=== PATIENT | female | born 1980 | race Caucasian/White ===

== ENCOUNTER 2023-04-30 19:49 | Emergency (ER) | payer OTHER, SELFPAY ==
[2023-04-30 19:50] VITALS: BP 170/106
[2023-04-30 20:01] LABS: % Basophils 0.4 % (0-2); % Eosinophils 0.6 % (0-6); % Immature Granulocytes 0.2 % (0-0.5); % Monocytes 3.6 % (1.7-9.3); % Neutrophils 70.2 % (42.2-75.2); Absolute Eosinophils 0.1 10^3/uL (0-0.7); Absolute Lymphocytes 2.3 10^3/uL (1.2-3.4); Absolute Monocytes 0.3 10^3/uL (0.1-0.6); Absolute Neutrophils 6.3 10^3/uL (1.4-6.5); Hematocrit 40.7 % (37.0-47.0); Hemoglobin 14.1 g/dL (12.0-16.0); Mean Corp Hgb Conc. 34.6 g/dL (33.0-37.0); Mean Corpuscular Hgb 27.6 pg (27.0-31.0); Mean Corpuscular Volume 79.8 fL (81.0-99.0); Mean Platelet Volume 9.7 fL (7.4-10.4); Nucleated Red Blood Cells % 0 %; Platelet Count 317 10^3/uL (130-400); Red Cell Dist. Width 11.9 % (11.5-14.5)
[2023-04-30 20:15] LABS: HCG, Serum Qualitative Screen Negative
[2023-04-30 20:19] LABS: ALT (SGPT) 60 U/L (0-35); AST (SGOT) 37 U/L (14-36); Albumin 4.4 g/dl (3.5-5.0); Alkaline Phosphatase 78 U/L (38-126); Blood Urea Nitrogen 14 mg/dl (7-17); Carbon Dioxide 22 mmol/L (22-30); Chloride 105 mmol/L (98-107); Glucose 140 mg/dl (70-99); Potassium 3.8 mmol/L (3.5-5.1); Sodium 135 mmol/L (135-145); Total Bilirubin 0.8 mg/dl (0.2-1.3); Total Protein 7.8 g/dl (6.3-8.2); eGFR > 60.00
[2023-04-30 20:39] VITALS: BMI 34.9
[2023-04-30] MEDS: TORADOL 30 MG IV (20:47)
[2023-04-30] MEDS: NSS 1000 IV (20:52)
[2023-04-30] MEDS: ZOFRAN 4 MG IV (20:52)
[2023-04-30] MEDS: DILAUDID 0.5 MG IV (20:52)
--- NOTE | 2023-04-30 21:22 | ED.GENMED ---
History of Present Illness
General
Chief Complaint: Flank Pain
Source: patient
Exam Limitations: none
Time Seen by Provider: 04/30/23 20:24
Nursing documentation reviewed up to this point in time: agreed with
Travel History
Have you had any contact with someone who has COVID-19?: No
Do you have any symptoms of coronavirus? Fever > 100 degrees, chills, cough, shortness of breath, sore throat, loss of taste or smell, muscle aches, or headache?: No
History of Present Illness
History of Present Illness:
Patient is a pleasant 42-year-old female with past medical history of kidney stones who presents with acute onset of left lower back pain radiating towards her left groin. Patient reports that she had generalized low back pain few days ago but over
the last 24 hours, it has settled into her left lower back area. She reports nausea but no vomiting. She denies fevers and chills.
Past History
Past History
ED Past Medical History: Other (Kidney stones)
ED Past Surgical History: Other
Social History
Tobacco: Other
Alcohol: Other
Drug: None
Personal: Other
Living: other
Employment: Other
Family History
Family History: Other
Review of Systems
Review of Systems
Allergies reviewed?: Yes
All Other Systems: ROS reviewed and negative except as documented in HPI and ROS
Constitutional: Reports no symptoms
EENT: Reports no symptoms
Respiratory: Reports no symptoms
Cardiac: Reports no symptoms
ABD/GI: Reports nausea
: Reports flank pain
Musculoskeletal: Reports no symptoms
Skin: Reports no symptoms
Neurological: Reports no symptoms
Endocrine: Reports no symptoms
Hematologic/Lymphatic: Reports no symptoms
Psychiatric: Reports no symptoms
Phy Exam
Physical Exam
Physical Exam:
Physical Exam
General: Patient appears uncomfortable
Neck: supple. no meningeal signs. normal psoterior pharynx
Heart: s1/s2 regular rate and rhythm, no murmur. equal radial pulses.
Lungs: no acute respiratory distress. clear bilaterally
Abdomen: normal bowel sounds. not tender. no CVAT
Neuro: alert and oriented. no focal neurological deficits
Skin: no rash
Psychiatric: well kept. interactive and cooperative
Extremities: no edema. no calf tenderness. negative homans. good distal pulses
Course
Orders/Labs/Results
Orders:
Orders
04/30/23 19:53
Test Result ONCE
04/30/23 19:55
CMP [Comprehensive Metabolic Panel] Urgent
Complete Blood Count/With Diff Urgent
HCG, Serum Qualitative Screen Urgent
04/30/23 20:43
0.9% Sodium Chloride 1000 ml [Nss] 1,000 ml IV BOLUS
04/30/23 20:44
HYDROmorphone [Dilaudid] 0.5 mg IV NOW STA
Ondansetron Injectable [Zofran] 4 mg IV NOW STA
04/30/23 20:45
Ketorolac [Toradol] 30 mg IV NOW STA
04/30/23 21:13
CT Abd/pel Without Iv Or Oral Urgent
Comment:
Reason For Exam: L flank pain
04/30/23 21:53
Urinalysis Urgent
Date Specimen was Collected: 04/30/23
Time Specimen was Collected: 19:53
Urine Microscopic Urgent
Date Specimen was Collected: 04/30/23
Time Specimen was Collected: 19:53
04/30/23 23:16
Nitrofurantoin Monohydrate [Macrobid] 100 mg PO NOW STA
04/30/23 23:17
Tamsulosin [Flomax] 0.4 mg PO NOW STA
Abnormal Lab Results
04/30/23 04/30/23
19:55 21:53
MCV 79.8 L fL
(81.0-99.0)
Glucose 140 H mg/dl
(70-99)
AST 37 H U/L
(14-36)
ALT 60 H U/L
(0-35)
Urine Occult Blood 4+ A
(Negative)
Ur Leukocyte Esterase 1+ A
(Negative)
Urine RBC 26-30 A /HPF
(0-2)
Urine WBC 6-10 A /HPF
(0-5)
Urine Bacteria Few A
(Negative)
04/30/23 19:55
04/30/23 19:55
Vital Signs
Initial and Last Documented VS:
Initial Vital Signs
Temp Pulse Resp BP Pulse Ox
98.4 F 82 18 170/106 98
04/30/23 19:50 04/30/23 19:50 04/30/23 19:50 04/30/23 19:50 04/30/23 19:50
Last Documented Vital Signs
Temp Pulse Resp BP Pulse Ox
98.4 F 76 18 148/86 100
04/30/23 19:50 04/30/23 21:56 04/30/23 21:56 04/30/23 21:56 04/30/23 21:56
MDM/Problems Addressed
Differential Diagnosis Includes:
Left renal colic, pyelonephritis, aortic dissection, musculoskeletal back pain
MDM/Problems Addressed:
Patient presents with acute low back pain on the left side and nausea
Chronic conditions affecting care:
History of chronic kidney stones
Acute Exacerbation and/or Progression of Chronic Illness:
Patient is acutely hypertensive, likely due to pain
Acute Exacerbation and/or Progression of Chronic Illness: HTN
*Radiology
Radiology exam reviewed: radiology read reviewed
*Pulse Oximetry
Patient hypoxic: no
*EKG
Interpreted by ED Provider?: NA
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
Rate: normal
Interpretation: normal
Rhythm: sinus
*Critical Care Note
Total Time (30-74mins, 75-104mins- exclusive of procedures): Not Applicable
Data Reviewed
Source: patient
Patient Management
Social determinants of health affecting care: Living situation and Strong social support
Discussion with other providers: Other (Dr. Mondragon)
Escalation/DeEscalation of care consider admission/obs:
11:20 PM patient is very comfortable and happy to go home. I touch base with Dr. Mondragon who agreed to follow-up with patient as an outpatient. Patient told that she must return with any fevers, chills or persistent vomiting
ED Attending Note
-
Portions of this chart may have been created with voice recognition software.� Occasional wrong word or��sound alike� substitutions may have occurred due to the inherent limitations of voice recognition software.
Discharge Plan
Departure
Patient Disposition: Home (Routine Discharge)
Date of Disposition: 04/30/23
Time of Disposition: 23:03
Patient with high blood pressure during this ER visit?: Yes
Condition: Good
Covid-19: Not Applicable
Discharge Problem:
Calculus of proximal left ureter, Ureter colic
Instructions: Kidney Stones (DC), Renal Colic (DC), BLOOD PRESSURE, Narcotic Pain Medication
Prescriptions:
New
ondansetron 4 mg tablet,disintegrating
4 mg PO Q8H PRN (Reason: nausea and vomiting) Qty: 14 0RF
tamsulosin [Flomax] 0.4 mg capsule
0.4 mg PO DAILY 7 Days Qty: 7 0RF
oxycodone-acetaminophen [Percocet] 5-325 mg tablet
1 tab PO Q4HPRN PRN (Reason: pain) Qty: 7 0RF
nitrofurantoin monohyd/m-cryst [Macrobid] 100 mg capsule
100 mg PO BID Qty: 13 0RF
Referrals:
Raul Mondragon MD [Active] -
NONE,* [Active] -
Activity Restrictions/Additional Instructions:
Please call urology tomorrow to schedule an appointment for soon as possible
Take 600 mg of Motrin every 6-8 hours with food for pain. If pain becomes severe, you can also take 1 Percocet tablet every 4 hours. Return for any fever or persistent vomiting. Take the Zofran every 8 hours as needed for nausea
Please take the Flomax once a day
Take the antibiotic every day as prescribed
Must return with any fevers, chills, or persistent vomiting
Interventions
Interventions:
*Risk Screen - Suicide Last Done: 04/30/23 19:50
*Neglect/Abuse Screening Last Done: 04/30/23 19:50
ED- Fall Risk Assessment Last Done: 04/30/23 20:40
[facility]-Gagwuq-Tnvufvuiof Assessment Last Done: 04/30/23 20:40
ED-Female Genitourinary Assessment Last Done: 04/30/23 20:40
[2023-04-30 21:56] VITALS: BP 148/86
[2023-04-30 22:07] LABS: Urine Albumin Negative (Neg - Trace); Urine Bilirubin Negative (Negative); Urine Character Clear (Clear); Urine Color Yellow; Urine Glucose Negative (Negative); Urine Ketone Negative (Negative); Urine Leukocyte 1+ (Negative); Urine Nitrite Negative (Negative); Urine Occult Blood 4+ (Negative); Urine Urobilinogen Negative (Neg - 1+); Urine pH 6.5 (5.0-9.0)
[2023-04-30 22:18] LABS: Urine Calcium Oxalate Crystals Seen
[2023-04-30 22:19] LABS: Urine Bacteria Few (Negative); Urine Red Blood Cell 26-30 /HPF (0-2)
[2023-04-30] MEDS: FLOMAX 0.400000000000000022 MG PO (23:27)
[2023-04-30] MEDS: MACROBID 100 MG PO (23:27)
== END 2023-04-30 23:36 | disposition home or self-care (01) ==
LOC: EMR 19:49
PROVIDERS: Emergency Medicine; EMERGENCY PHYSICIAN Emergency Medicine; FAMILY PHYSICIAN Family Medicine
DX: N13.2 Hydronephrosis with renal and ureteral calculous obstruction (principal); R03.0 Elevated blood-pressure reading, without diagnosis of hypertension; Z87.442 Personal history of urinary calculi
CPT/HCPCS: 99284; 96374; 96375 ×2; 96361; 74176; 80053; 81003; 81015; 84703; 85025

== ENCOUNTER → 2023-07-09 13:29 | Outpatient (REF) | payer OTHER, SELFPAY | LOC: WDC 13:29 | PROVIDERS: ATTENDING PHYSICIAN Family Medicine | DX: Z12.31 Encounter for screening mammogram for malignant neoplasm of breast (principal) | CPT/HCPCS: 77063; 77067 ==

== ENCOUNTER → 2024-07-10 11:50 | Outpatient (REF) | payer OTHER, SELFPAY | LOC: WDC 11:50 | PROVIDERS: ATTENDING PHYSICIAN Nurse Practitioner Family; FAMILY PHYSICIAN Family Medicine | DX: Z12.31 Encounter for screening mammogram for malignant neoplasm of breast (principal) | CPT/HCPCS: 77063; 77067 ==